=== PATIENT | female | born 1950 | race Caucasian/White ===

== ENCOUNTER 2017-09-20 10:49 | Day surgery (SDC) | payer OTHER ==
[2017-09-17 09:26] VITALS: BMI 27.3
[2017-09-20] MEDS ORDERED: PROPOFOL 20 ML ONE ×2 (12:29)
[2017-09-20 14:05] VITALS: BP 120/73; PULSE 68; TEMP 97.8
== END 2017-09-20 14:00 | disposition home or self-care (01) ==
LOC: FASU-ENDO 10:49
PROVIDERS: ATTEND Internal Medicine Gastroenterology
PROC: 0DJD8ZZ Inspection of Lower Intestinal Tract, Via Natural or Artificial Opening Endoscopic (ICD-10-PCS; principal; 2017-09-20 11:30)
DX: Z12.11 Encounter for screening for malignant neoplasm of colon (principal); K57.30 Diverticulosis of large intestine without perforation or abscess without bleeding